=== PATIENT | female | born 1930 | race Caucasian/White ===

== ENCOUNTER 2017-03-21 03:15 | Inpatient (IN) ==
[2017-03-15 11:35] LABS: URINE MICRO REVIEW NEEDED? NO; URINE SOURCE CLEAN CATCH
[2017-03-15 11:35] LABS: MANUAL DIFF NEEDED? NO
[2017-03-15 11:39] LABS: BILIRUBIN URINE NEGATIVE (NEGATIVE); BLOOD URINE NEGATIVE (NEGATIVE); COLOR YELLOW; GLUCOSE URINE NEGATIVE (NEGATIVE); LEUKOCYTES URINE TRACE (NEGATIVE); NITRITE URINE NEGATIVE (NEGATIVE); PH URINE 5.5; PROTEIN URINE TRACE mg/dL (NEGATIVE); SP GRAVITY URINE 1.023; TURBIDITY URINE CLEAR (CLEAR); UROBILINOGEN URINE 2 mg/dL (NORMAL)
[2017-03-15 11:40] LABS: BASO% 0.2 % (0.0-0.8); EOS# 0.17 X1000 (0.0-0.7); EOS% 1.9 % (0.0-10.0); HEMATOCRIT 47.4 % (37.0-47.0); HEMOGLOBIN 15.3 g/dL (12.0-16.0); IMM GRAN# 0.02 X1000 (0.0-0.04); IMM GRAN% 0.2 % (0.0-0.5); LYMPH# 2.94 X1000 (1.2-3.4); LYMPH% 32.8 % (20.5-51.1); MCH 29.7 PG (27-31); MCHC 32.3 g/dL (33-37); MONO# 0.62 X1000 (0.11-0.59); MONO% 6.9 % (1.7-9.3); MPV 10.5 FL (7.4-10.4); PLT 232 X1000 (130-400); RBC 5.15 XMIL (4.2-5.4)
[2017-03-15 11:40] LABS: UR EPITHELIAL CELLS <10 /HPF (<10); URINE BACTERIA NEGATIVE /HPF; URINE RBC <10 /HPF (<10); URINE WBC <10 /HPF (<10)
[2017-03-15 12:03] LABS: AGAP 11; BUN 15 mg/dL (8-22); CALCIUM 9.8 mg/dL (8.8-10.2); CHLORIDE 102 mmol/L (98-107); COSMO 287; POTASSIUM 4.7 mmol/L (3.5-5.1); SODIUM 144 mmol/L (136-145); TCO2 31 mmol/L (25-35)
[2017-03-15 13:04] LABS: INR 0.98; PROTIME 10.3 Seconds (9.2-11.7); PTT 26.2 Seconds (22.0-36.0)
[2017-03-21] MEDS ORDERED: COLACE ONE (06:41)
[2017-03-21] MEDS ORDERED: REGLAN ONE (06:41)
[2017-03-21] MEDS ORDERED: LYRICA ONE (06:41)
[2017-03-21] MEDS ORDERED: PEPCID ONE (06:41)
[2017-03-21] MEDS ORDERED: KEFZOL 1 GM/D5W 1 GM/50 ML IVPB ONE (06:42)
[2017-03-21] MEDS ORDERED: CELEBREX ONE (06:42)
[2017-03-21] MEDS ORDERED: LR 1,000 ML ONE (06:42)
[2017-03-21] MEDS ORDERED: DIPRIVAN 1% ONE (06:46)
[2017-03-21] MEDS ORDERED: QUELICIN (DOSE) ONE (06:48)
[2017-03-21] MEDS ORDERED: XYLOCAINE-MPF 2% ONE (06:48)
[2017-03-21] MEDS ORDERED: ROBINUL ONE (06:48)
[2017-03-21] MEDS ORDERED: TOPROL XL ONE (07:02)
[2017-03-21] MEDS ORDERED: NORCO-7.5 PO PRN (07:04)
[2017-03-21] MEDS ORDERED: MORPHINE IV PRN (07:05)
[2017-03-21] MEDS ORDERED: VERSED ONE (07:31)
[2017-03-21] MEDS ORDERED: CYKLOKAPRON 1,000 MG/NS 1,000 MG/100 ML IVPB ONE (07:41)
[2017-03-21] MEDS ORDERED: SODIUM CHLORIDE 0.9% ONE (07:41)
[2017-03-21] MEDS ORDERED: DURAMORPH ONE (07:41)
[2017-03-21] MEDS ORDERED: MARCAINE 0.25% PF ONE (07:41)
[2017-03-21] MEDS ORDERED: TORADOL ONE (07:41)
[2017-03-21] MEDS ORDERED: NEOSPORIN G.U. IRRIGANT ONE (07:42)
[2017-03-21] MEDS ORDERED: EXPAREL 1.3% ONE (07:42)
[2017-03-21] MEDS ORDERED: FENTANYL ONE (08:45)
[2017-03-21] MEDS ORDERED: APRESOLINE ONE (09:11)
[2017-03-21] MEDS ORDERED: LABETALOL ONE (09:21)
[2017-03-21] MEDS ORDERED: ZOFRAN ONE (10:02)
[2017-03-21] MEDS ORDERED: DECADRON ONE (10:02)
[2017-03-21] MEDS ORDERED: OFIRMEV 1000 MG/ISOTONIC SOLN 1,000 MG/100 ML BOTTLE ONE (10:13)
[2017-03-21 10:25] LABS: URINE MICRO REVIEW NEEDED? NO; URINE SOURCE CATH
[2017-03-21 10:39] LABS: BILIRUBIN URINE NEGATIVE (NEGATIVE); BLOOD URINE NEGATIVE (NEGATIVE); COLOR YELLOW; GLUCOSE URINE NEGATIVE (NEGATIVE); LEUKOCYTES URINE NEGATIVE (NEGATIVE); NITRITE URINE NEGATIVE (NEGATIVE); PH URINE 6.5; PROTEIN URINE TRACE mg/dL (NEGATIVE); SP GRAVITY URINE 1.019; TURBIDITY URINE CLEAR (CLEAR); UROBILINOGEN URINE NORMAL (NORMAL)
[2017-03-21 10:43] LABS: UR EPITHELIAL CELLS <10 /HPF (<10); URINE BACTERIA NEGATIVE /HPF; URINE RBC <10 /HPF (<10); URINE WBC <10 /HPF (<10)
[2017-03-21] MEDS ORDERED: NS 1,000 ML ONE (10:51)
--- NOTE | 2017-03-21 11:02 | OPERATIVE NOTE ---
PROCEDURE DATE: 03/21/2017 PREOPERATIVE DIAGNOSIS: Degenerative joint disease, right hip. POSTOPERATIVE DIAGNOSIS: Degenerative joint disease, right hip. PROCEDURE: Right total hip replacement, anterior. SURGEON: Libia Jenkins M.D. FORESTRY FACULTY MEMBER: CHUY Eddy. ANESTHESIA: General. COMPLICATIONS: None. PROCEDURE IN DETAIL: An 86-year-old female presents for an anterior hip replacement. Risks, benefits, and no guarantees were discussed, and she is willing to proceed. She was taken to the operating room, and satisfactory anesthesia obtained. She was placed on the Dixie table, and the right hip prepped and draped in the usual sterile fashion. A time-out was taken to confirm operative site, procedure, and patient. An anterior approach to the right hip was undertaken with an incision starting 1 cm distal and lateral to the anterior superior iliac spine, and carried slightly obliquely distally for 10 cm. Dissection was carried down through the fascia of the tensor and blunt fingertip dissection along the inner membrane of this to the anterior hip capsule. Cobra retractors were placed over the superior and inferior aspect of the femoral neck, and a capsulotomy incision made. Femoral neck osteotomy was made, and the femoral head removed. The acetabulum was visualized, and sequential reaming of the acetabulum undertaken up to a 51 reamer. A DePuy Vilas DuoFix CAVANAUGH coated cup was then impacted into the acetabulum with a size 52 outer diameter cup under fluoroscopic guidance. Roughly 10 degrees of anteversion and 45 degrees of abduction was achieved. Cup was noted to have good initial stability. A 25 length screw was placed in the 12 o'clock position of the cup. A 36 inner diameter 0-degree polyethylene liner was then impacted into the cup, and the implants checked with good stability of both the cup liner interface and liner bone interface. Using the Dixie table, the leg was externally rotated and extended to facilitate broaching of the proximal femur. Sequential broaching of the proximal femur was undertaken up to a size 12 Corail stem with a standard neck geometry. This revealed good range of motion and stability with a 1.5 trial head. The trial stem was removed, and a standard neck size 12 Corail stem impacted into the proximal femur with roughly 10 degrees of anteversion, with secure axial and rotational stability. A 36 ceramic head with a 1.5 neck length was impacted on this, and the hip reduced. The C-arm was used to verify accurate implant position as well as bahai of leg length, with matching up of the inferior pubic rami and the lesser trochanters. Good bahai of leg length with some lengthening for a preoperative short leg was noted. The hip was externally rotated roughly 70 degrees, and extended to 30 degrees without any anterior instability. The joint capsule was injected with Exparel for pain management. A Hemovac drain was placed. It was then copiously irrigated with irrigant, and closed over the drain with a running 0 Vicryl in the fascia of the tensor, 2-0 Vicryl in the subcu, and skin mikael on the skin edges. Sterile dressings completed the closure, and the patient was recovered from anesthesia and transferred to the recovery room in stable condition. No intraoperative complications were noted. Instrument count and sponge count were correct at the time of closure. cc: Cesar Jenkins MD
[2017-03-21] MEDS: CALTRATE 600 + D PO SCH (12:27)
[2017-03-21] MEDS: COLACE PO SCH (12:28)
[2017-03-21] MEDS: TOPROL XL PO SCH (12:28)
--- NOTE | 2017-03-21 14:08 | CONSULTATION ---
DATE OF CONSULTATION: 03/21/2017 HISTORY OF PRESENT ILLNESS: Ms. Shabazz is an 86-year-old who had a total hip arthroplasty. PAST MEDICAL HISTORY: Very unremarkable. She has had a little bit of hypertension history. PAST SURGICAL HISTORY: She denied any real surgical history. ALLERGIES: No known drug allergies. SOCIAL HISTORY: and lives with her , very supportive. Supported by her daughter. REVIEW OF SYSTEMS: General: No weight gain or loss. No fever or chills. HEENT: Unremarkable. Respiratory: No increased work of breathing or dyspnea. Cardiovascular: No chest pain or tachy palpitation. GI: Unremarkable. : Unremarkable. She underwent total hip arthroplasty today, on 03/21/2017, right total hip replaced without complication. Seems to be doing well postop. I saw her about 11:30 this morning, comfortable and awake. PHYSICAL EXAMINATION: Vital signs: Afebrile, temp 97.4 degrees, pulse 70, respirations 18, blood pressure current was 95/47. HEENT: Pupils are equal and round. Neck: CVP less than 6 cm. Lungs: Clear in all lung burns. Cardiovascular: Regular rhythm and rate without murmur or S3. Abdomen: Soft, nontender, nondistended. Positive bowel sounds. No hepatosplenomegaly. Extremities: Without clubbing, cyanosis, or edema. Intake and output: Urine output was 700 mL so far. LAB: Preop hematocrit was 47, hemoglobin 15, and platelet count 232,000, white count 8,950. Sodium 144, potassium 4.7, chloride 102, bicarb 31, BUN 15, creatinine 0.8, calcium 9.8. ASSESSMENT AND PLAN: She is status post right total hip arthroplasty, doing well. Continue rehab. Watch blood pressure. Will see what her hemoglobin and hematocrit are tomorrow. Expect some blood loss anemia. I have reviewed her medications. She is right now on a clear diet. Nettles catheter in. She is on calcium carbonate 1 a day. She has normal saline 83 mL an hour. She got a drop in the cefazolin. She is on Celebrex 400 mg a day, Colace 100 mg twice a day. She is getting hydrocodone 7.5 p.r.n., Ativan 0.5 mg at bedtime, metoprolol 25 mg a day. I may put her on Xarelto 10 mg a day, Zocor 20 mg a day. cc: MD Cesar Lee MD
[2017-03-21] MEDS ORDERED: ZOFRAN IV PRN (14:59)
[2017-03-21] MEDS ORDERED: CYKLOKAPRON 1,000 MG in NS 100 ML IV ONE (15:00)
--- NOTE | 2017-03-21 16:43 | PROGRESS NOTE ---
DATE: 03/21/2017 Ms. Shabazz is seen for postop status post joint replacement. At the present time, she is afebrile with stable vital signs. She is in minimal pain. Her bandage about the hip is clean and dry. She is motor and sensory intact without any obvious deficits. At the present time, she is in stable condition. cc: Cesar Jenkins MD
[2017-03-21] MEDS: KEFZOL 1 GM/D5W 1 GM/50 ML IVPB IV SCH (17:50)
[2017-03-21] MEDS: NS 1,000 ML IV SCH ×2 (18:22→23:11)
[2017-03-21] MEDS: ULTRAM PO PRN (23:11)
[2017-03-22] MEDS: KEFZOL 1 GM/D5W 1 GM/50 ML IVPB IV SCH (01:18)
[2017-03-22] MEDS: ATIVAN PO SCH (04:29)
[2017-03-22] MEDS: PERIDEX MT SCH ×2 (04:30→09:18)
[2017-03-22] MEDS: COLACE PO SCH ×2 (04:30→09:17)
[2017-03-22] MEDS: ZOCOR PO SCH (04:31)
[2017-03-22] MEDS: ULTRAM PO PRN (05:43)
[2017-03-22] MEDS: XARELTO PO SCH (05:43)
[2017-03-22 05:58] LABS: HEMATOCRIT 31.9 % (37.0-47.0); HEMOGLOBIN 10.3 g/dL (12.0-16.0)
[2017-03-22 06:27] LABS: AGAP 11; BUN 15 mg/dL (8-22); CALCIUM 8.5 mg/dL (8.8-10.2); CHLORIDE 100 mmol/L (98-107); COSMO 276; POTASSIUM 4.2 mmol/L (3.5-5.1); SODIUM 137 mmol/L (136-145); TCO2 26 mmol/L (25-35)
[2017-03-22] MEDS: CELEBREX PO SCH (09:17)
[2017-03-22] MEDS: CALTRATE 600 + D PO SCH (09:17)
[2017-03-22] MEDS: TOPROL XL PO SCH (09:17)
--- NOTE | 2017-03-22 09:32 | PROGRESS NOTE ---
DATE: 03/22/2017 SUBJECTIVE: She had some confusion last night. Was seeing bluebirds in the room but overall did well. I do not think that she slept real well but she is eating well. She is awake this morning and pleasant. Her color looks good. Remains afebrile. PHYSICAL EXAMINATION: Vital Signs: Temperature 98 degrees, pulse 80, respirations 18, blood pressure 122/57. Lungs: Clear in all lung burns. Cardiovascular Examination: Regular rhythm and rate without murmur or S3. Abdomen: Soft. Skin: Warm and dry. Is and Os: Urine output was 2 L. LAB: Hemoglobin dropped from 15-10, hematocrit 47-31 postoperatively. ASSESSMENT AND PLAN: 1. Postoperative total hip arthroplasty. Seems to be doing well. 2. 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 Continue her physical therapy. Encourage her to eat. We will see if we can get her up and hopefully pursue rehab. 3. I have reviewed her medications. I do not see any changes. She is on Celebrex. She is on metoprolol. She is on Xarelto which is 10 mg a day for her blood thinner. She is getting at a small dose of Ultram which seems to be helping with the pain so I will leave her there. director of social services to talk to them about rehab. cc: MD Cesar Lee MD
--- NOTE | 2017-03-22 09:52 | PROGRESS NOTE ---
DATE: 03/22/2017 SUBJECTIVE: Ms. Shabazz was seen today postop an anterior hip replacement. She is relatively afebrile with stable vital signs. The incision is clean and dry. There are no complications postoperatively. She is having some confusion and sundowning. Dr. Mccracken has seen her for evaluation of this. We will plan on keeping her in the hospital and possibly considering rehab versus home health. I will ask my partner, Dr. Key, to see her in my absence. Will evaluate her over the next several days due to her confusion level as to appropriate discharge planning. cc: Cesar Jenkins MD
[2017-03-22] MEDS ORDERED: HALDOL IM ONE (12:03)
[2017-03-22] MEDS: ATIVAN IV PRN (13:26)
[2017-03-22] MEDS: NS 1,000 ML IV SCH (21:52)
[2017-03-23] MEDS: ATIVAN PO SCH (04:35)
[2017-03-23] MEDS: NS 1,000 ML IV SCH (04:35)
[2017-03-23] MEDS: PERIDEX MT SCH ×2 (04:35→08:59)
[2017-03-23] MEDS: COLACE PO SCH ×2 (04:35→08:59)
[2017-03-23] MEDS: ZOCOR PO SCH (04:36)
[2017-03-23 05:53] LABS: HEMATOCRIT 30.7 % (37.0-47.0); HEMOGLOBIN 9.9 g/dL (12.0-16.0)
[2017-03-23] MEDS: XARELTO PO SCH (06:02)
[2017-03-23] MEDS: CALTRATE 600 + D PO SCH (08:59)
[2017-03-23] MEDS: CELEBREX PO SCH (08:59)
[2017-03-23] MEDS: TOPROL XL PO SCH (08:59)
--- NOTE | 2017-03-23 09:26 | DISCHARGE SUMMARY ---
ADMISSION DATE: 03/21/2017 DISCHARGE DATE: HOSPITAL COURSE: The patient was here for total hip arthroplasty. She has had pain for a while. Past medical history was pretty unremarkable. She had no real surgical history. She tolerated the surgery well. She did have a little bit of sundowning and nocturnal confusion. She did well with physical therapy. She did well with nutrition. It was felt she could go home with home health care. DISCHARGE MEDICATIONS: 1. Calcium with D 600 D one a day. 2. Celebrex 400 mg a day. 3. Colace 100 mg b.i.d. 4. I think she is getting tramadol for pain, 25 mg p.r.n., and she did require much of those. 5. Zocor 20 mg a day. 6. Xarelto 10 mg a day for another 15 days. 7. Toprol-XL 25 mg a day. She will follow up with Dr. García and also follow up with Dr. Key. cc: MD Cesar Lee MD
--- NOTE | 2017-03-23 11:05 | DISCHARGE SUMMARY ---
ADMISSION DATE: 03/21/2017 DISCHARGE DATE: DISCHARGE DIAGNOSIS: Right total hip arthroplasty. DISCHARGE MEDICATIONS: See discharge medication list. DISPOSITION: Patient discharged home with home health, physical therapy. Instructed to return for any signs or symptoms of infection or deep venous thrombosis. Instructed to return see Dr. Jenkins in 2 weeks. HOSPITAL COURSE: On the day of admission, the patient underwent a right anterior total hip arthroplasty. Her postoperative course was unremarkable. At discharge she is afebrile, tolerating a regular diet, ambulating with physical therapy. Her wound is clean, dry, intact without signs of infection. She is discharged to home in stable condition with instructions to followup as described above. cc: MD Cesar Will MD
[2017-03-23 11:23] LABS: BLOOD TYPE ARTERIAL; SAMPLE BLOOD
[2017-03-23 11:24] LABS: ALLEN TEST YES; BE 7.7 mmoll (-3.0-3.0); DRAW SITE R RADIAL; METHB 1.3 % (0.0-1.5); O2(CT) 13.3 mL/dL (15.0-23.0); PCO2(98.6) 47 mmHg (35-45); SAO2 88.6 % (95.0-100.0); THB 11.1 g/dL (11.5-17.4); pH(98.6) 7.45 (7.35-7.45)
[2017-03-23 11:30] LABS: PO2(98.6) 44 mmHg (60-100)
[2017-03-23 11:31] LABS: MODALITY ROOM AIR
[2017-03-23] MEDS ORDERED: ATROVENT NEB INH ONE (11:49)
--- NOTE | 2017-03-23 12:14 | Diag Imaging Result Doc PS360 ---
EXAM: CHEST-PORTABLE INDICATION: LOW OXYGEN SATURATION TECHNIQUE: One view COMPARISON: 07/30/2013 FINDINGS: There is suggestion of minimal subsegmental atelectasis versus scarring at the right lung base. The patient is rotated toward the right. The lungs are grossly clear, otherwise. There is no discrete pleural fluid collection or pneumothorax. The cardiomediastinal silhouette and central vasculature are grossly unremarkable. IMPRESSION: Suggestion of minimal atelectasis versus scarring at the right lung base. No definite acute pathology by plain radiograph, otherwise. Electronically signed by Cesar Rivero 03/23/2017 12:11 PM
[2017-03-23] MEDS: ATIVAN IV PRN (13:51)
[2017-03-23 16:09] LABS: ALLEN TEST YES; BLOOD TYPE ARTERIAL; DRAW SITE R RADIAL; METHB 0.9 % (0.0-1.5); O2(CT) 13.8 mL/dL (15.0-23.0); PCO2(98.6) 49 mmHg (35-45); PO2(98.6) 53 mmHg (60-100); SAMPLE BLOOD; SAO2 92.7 % (95.0-100.0); THB 10.9 g/dL (11.5-17.4); pH(98.6) 7.44 (7.35-7.45)
[2017-03-23 16:12] LABS: MODALITY ROOM AIR
[2017-03-23 16:23] VITALS: BP 94/64
--- NOTE | 2017-03-23 17:12 | PROGRESS NOTE ---
DATE: 03/23/2017 ADDENDUM TO DISCHARGE: Ms. Shabazz had some O2 saturations that were in the mid 80s, so we checked a chest x-ray, checked blood gases, this was at 11 o'clock this morning. The pH was 7.45, pCO2 was 47, and PO2 was 44 with saturation of 85% that was on room air. Checked a chest x-ray, it was basically unremarkable except for some right-sided basilar atelectasis, minimal atelectasis, and did not see any infiltrate. Repeat blood gases, she did have some more confusion today, and repeat blood gases at 3 o'clock, almost 4 o'clock today pH was 7.44, pCO2 was 49, PO2 was 53, and saturation was 89%. We will let her go home. Breathing comfortably. Looks comfortable, and we got her discharge orders ready. cc: MD Cesar Lee MD
== END 2017-03-23 16:50 | disposition home health service (06) ==
LOC: SURHOLD 03:15 → 4N 08:48
PROVIDERS: ADMIT Orthopaedic Surgery Adult Reconstructive Orthopaedic Surgery; ATTEND Orthopaedic Surgery Adult Reconstructive Orthopaedic Surgery